=== PATIENT | male | born 1985 | race Caucasian/White ===

== ENCOUNTER 2019-03-01 17:18 | Emergency (ER) | payer OTHER ==
[~2019-03-01] VITALS: Ht 172.7 cm; Wt 77.6 kg
== END 2019-03-01 18:46 | disposition home or self-care (01) ==
LOC: ER 17:18
DX: S50.11XA Contusion of right forearm, initial encounter (principal); X58.XXXA Exposure to other specified factors, initial encounter
CPT/HCPCS: 73070; 99283-25

== ENCOUNTER 2019-03-05 18:10 | Emergency (ER) | payer OTHER ==
[~2019-03-05] VITALS: Ht 172.7 cm; Wt 77.1 kg
== END 2019-03-05 19:17 | disposition home or self-care (01) ==
LOC: ER 18:10
DX: M79.5 Residual foreign body in soft tissue (principal); F17.210 Nicotine dependence, cigarettes, uncomplicated
CPT/HCPCS: 99282